=== PATIENT | female | born 1945 | race Caucasian/White ===

== ENCOUNTER → 2017-12-15 | Outpatient (CLI) | payer OTHER ==
[~2017-12-15] MED LIST: ASPCH81X PO; CALC600T9 PO; CORN1POW2 PO; GLIP-197 PO; LISI-789 PO; LOVA20TA4 PO; METF850T9 PO; MULT-506 PO; PRLSR20 PO; STOOL SOFTNER PO; [UNRECOGNIZED DRUG - CODE] PO
[2017-12-15 17:56] LABS: ALBUMIN 3.5 gm/dl (3.4-5.0); ALT/SGPT 19 U/L (12-78); AST/SGOT 12 U/L (15-37); BLOOD UREA NITROGEN 14 mg/dl (7-18); CALCIUM 8.8 mg/dl (8.5-10.1); CARBON DIOXIDE 28 mmol/L (21-32); GLUCOSE 183 mg/dl (70-99); POTASSIUM 3.9 mmol/L (3.5-5.1); SODIUM 135 mmol/L (136-145)
[2017-12-15 18:07] LABS: ALKALINE PHOSPHATASE 66 U/L (45-117); CHOLESTEROL 121 mg/dl (0-200); LDL CHOLESTEROL CALCULATED 37 mg/dl
[2017-12-16 06:35] LABS: HEMOGLOBIN A1C 6.6 % (4.5-5.6)
== END | disposition home or self-care (01) ==
LOC: C.LABMFLN 15:06
PROVIDERS: ATTEND Physician Assistant
DX: E11.9 Type 2 diabetes mellitus without complications (principal)

== ENCOUNTER → 2018-03-01 | Outpatient (CLI) | payer OTHER ==
[2018-03-01 13:11] LABS: HEMOGLOBIN A1C 6.7 % (4.5-5.6)
[2018-03-01 13:24] LABS: CREATININE RANDOM URINE 63.7 mg/dl
== END | disposition home or self-care (01) ==
LOC: C.LABMFLN 07:52
PROVIDERS: ATTEND Physician Assistant
DX: E11.9 Type 2 diabetes mellitus without complications (principal); E78.5 Hyperlipidemia, unspecified